=== PATIENT | female | born 1980 | race Caucasian/White ===

== ENCOUNTER 2017-01-02 13:03 | Emergency (ER) | payer SELFPAY ==
[~2017-01-02 13:03] MED LIST: ANTIBIOTICS; BACTRIM DS TABL1 TAB PO; CIPRO500 M2 PO; COMPAZINE10 MG PO; FLAGYL500 M1 PO; FLEXERIL10 MG PO; HYDROXYZINE HCL10 MG PO; KEFLEX500 M2 PO; MOTRIN600 MG PO; MOTRIN800 MG PO; NORCO 5-325 TA1 EACH PO; NORCO 5/325 TAB1 TAB PO; PERCOCET 5/3251 TAB PO; PRENATAL1 EACH PO; PRISTIQ50 MG PO; SKELAXIN800 MG PO; VIBRAMYCIN100 MG PO
[2017-01-02] MEDS ORDERED: WELLBUTRIN SR100 M2 PO (14:47)
[2017-01-02] MEDS ORDERED: TOPAMAX100 M2 PO (14:47)
[2017-01-02 15:35] LABS: BASO % 0.5 % (0-2); EOSINOPHIL ABSOLUTE COUNT 0.3 tho/cmm (0.0-0.7); HCT-HEMATOCRIT 36.2 % (34.0-49.0); HGB-HEMOGLOBIN 12.3 gm/dl (12.0-15.5); IMMATURE GRANULOCYTES ABSOLUTE 0.03 tho/cmm (0-0.03); IMMATURE GRANULOCYTES PERCENT 0.4 % (0-0.3); LYMPH % 39.1 % (20-45); LYMPH ABSOLUTE COUNT 3.3 tho/cmm (0.8-4.5); MCH (MEAN CORPUSCULAR HGB) 31.1 pg (28.0-32.0); MCV (MEAN CELL VOLUME) 91.4 fl (82.0-96.0); MEAN PLATELET VOLUME 9.9 cmc (9.4-12.4); MONO % 8.8 % (0-12); MONOCYTE ABSOLUTE COUNT 0.8 tho/cmm (0.0-1.2); NEUTROPHIL ABSOLUTE COUNT 4.1 tho/cmm (1.6-8.0); NEUTROPHIL-AUTOMATED 4.1 tho/cmm (1.6-8.0); NEUTROPHILS % 48.2 % (40-80); PLATELET COUNT 257 tho/cmm (150-450); RED BLOOD COUNT 3.96 mil/cmm (4.00-5.20); RED CELL DISTRIBUTION WIDTH 13.2 % (12.4-16.4); WHITE BLOOD COUNT 8.6 tho/cmm (4.0-10.0)
[2017-01-02 15:40] LABS: URINE APPEARANCE CLOUDY; URINE BILIRUBIN NEGATIVE (NEG); URINE BLOOD NEGATIVE (NEG); URINE COLOR YELLOW; URINE GLUCOSE (UA) NEGATIVE (NEG); URINE KETONE NEGATIVE (NEG); URINE LEUKOCYTE ESTERASE POSITIVE (NEG); URINE NITRITE NEGATIVE (NEG); URINE PH 6.5 (5.0-8.0); URINE PROTEIN NEGATIVE (NEG)
[2017-01-02 15:48] LABS: URINE BACTERIA 1+; URINE RBC 0 /[HPF] (0-5)
[2017-01-02 15:54] LABS: ALB/GLOB RATIO 0.8 (0.8-2.0); ALKALINE PHOSPHATASE 62 U/L (33-138); ALT/SGPT 20 U/L (12-78); BILIRUBIN,TOTAL 0.3 mg/dl (0-1.5); BLOOD UREA NITROGEN 13 mg/dl (6-24); CALCIUM 7.9 mg/dl (8.5-10.5); CARBON DIOXIDE-VENOUS 26 mmol/L (22-32); CHLORIDE 109 mmol/l (96-110); CREATININE 0.98 mg/dl (0.50-1.10); GLUCOSE 82 mg/dL (70-110); LIPASE 174 U/L (73-393); SODIUM 142 mmol/L (135-145); eGFR VALUE FOR BLACK 87 mL/Min
[2017-01-02 15:55] LABS: ANION GAP 11 mmol/L (0-20); AST/SGOT 19 U/L (10-40); POTASSIUM 4.1 mmol/L (3.7-5.1)
[2017-01-02] MEDS ORDERED: NORCO 5-325 TA1 EACH PO (17:14)
[2017-01-02] MEDS ORDERED: ZOFRAN ODT4 MG PO (17:14)
[2017-02-18] MEDS ORDERED: [UNRECOGNIZED DRUG - REMARK] PO (07:04)
[2017-02-18] MEDS ORDERED: MACROBID 100 M100 M1 PO (09:49)
[2017-02-18] MEDS ORDERED: KETOROLAC TROME10 MG PO (09:49)
[2017-02-18] MEDS ORDERED: FLAGYL500 M1 PO (09:49)
== END 2017-01-02 17:59 ==
LOC: EDMED 13:03
PROVIDERS: Nurse Practitioner Family
DX: K80.50 Calculus of bile duct without cholangitis or cholecystitis without obstruction (principal)
CPT/HCPCS: J2270; J2405; J7030